=== PATIENT | female | born 1990 ===

== ENCOUNTER 2018-06-20 07:18 | Day surgery (SDC) | payer MEDICAID ==
[2018-06-14 07:18] VITALS: BMI 28.5
[2018-06-20] MEDS ORDERED: Iohexol 240 200 ML ONE (07:36)
[2018-06-20 07:52] VITALS: TEMP 98.7
[2018-06-20] MEDS ORDERED: Lidocaine 2% Jelly (Uro-Jet) ONE (09:14)
[2018-06-20] MEDS ORDERED: Iohexol 240 200 ML BLADIN ONE (09:20)
[2018-06-20 09:44] VITALS: O2SAT 100
[2018-06-20 10:16] VITALS: BP 114/73; PULSE 71; RESP 18
--- NOTE | 2018-06-20 16:46 | RAD ---
Date of service: 06/20/2018 PROCEDURE: Intraoperative Fluoroscopy. HISTORY: CYSTOSCOPY FINDINGS: Fluoroscopic assistance was provided for cystoscopy. 0.4 min of fluoro time employed. Please refer to the operative report from SIMI Morgan.
--- NOTE | 2018-07-20 19:32 | OP ---
PROCEDURE DATE: 06/20/2018 PREOPERATIVE DIAGNOSIS: Recurrent urinary tract infection. POSTOPERATIVE DIAGNOSIS: Recurrent urinary tract infection. PROCEDURE PERFORMED: Cystogram, followed by a cystoscopy. SURGEON: Adenike Phelps MD. DESCRIPTION OF PROCEDURE: With the patient on the operating room table in a supine position, I inserted a #[address] Martinez catheter to fill the bladder to maximum capacity with Cystografin material and proceeded to take some x-rays. I then applied pressure to the abdomen while the patient was straining, did further x-rays to try to establish any presence of reflux uropathy, it did not prove that. At this time, there was no reflux uropathy. I also evaluated the bladder for hypermobility through coughing and Valsalva and I did not identify any hypermobility at the bladder neck. Following this, I emptied the bladder and used 2% local for anesthetic effect, then I performed cystoscopy. The ureteral orifices were normally placed. The bladder wall was completely normal. There appears to be no bladder descent. No unusual findings in the circumferential evaluation of the bladder. Once these identifying points were made, then the patient was taken from the operating room in good condition. Adenike Phelps MD
== END 2018-06-20 10:50 | disposition home or self-care (01) ==
LOC: H.OPSURG 07:18
PROVIDERS: ATTEND Urology
DX: N39.0 Urinary tract infection, site not specified (principal)
CPT/HCPCS: 52000; A4322; Q9966